=== PATIENT | male | born 1960 | race Caucasian/White ===

== ENCOUNTER 2022-06-05 18:01 | Emergency (ER) | payer OTHER ==
[~2022-06-05 18:01] MED LIST: Cordarone 150 MG/3 ML Injection ONE
[2022-06-05] MEDS ORDERED: NEXTERONE 360 MG/200 ML BAG 360 MG/200 ML PLAST..BAG IV ONE (18:08)
[2022-06-05] MEDS ORDERED: Cordarone 150 MG/3 ML Injection IV ONE (18:10)
[2022-06-05 18:15] LABS: Absolute Neutrophil Ct (ANC) 6.55 x10^3/uL (1.4-6.9); Basophil (Absolute #) 0.16 x10^3/uL (0-0.4); Eosinophil % 1.5 % (0.00-5.0); Eosinophil (Absolute #) 0.25 x10^3/uL (0-0.5); Hematocrit 47.6 % (42-50); Hemoglobin 14.9 g/dL (12.5-18.0); Lymphocyte (Absolute #) 7.35 x10^3/uL (1.0-4.6); Lymphocytes % 45.5 % (24.0-44.0); Mean Corpuscular Hemoglobin 29.7 pg (26-32); Mean Corpuscular Hgb Concent. 31.3 g/dL (32-36); Mean Platelet Volume 9.2 fL (7.5-11.0); Monocyte (Absolute #) 1.14 x10^3/uL (0.0-1.3); Monocytes % 7.1 % (0.0-12.0); Neutrophil % 40.5 % (36.0-66.0); Platelet Count 279 x10^3/uL (150-450); Red Blood Count 5.01 x10^6/uL (4.1-5.6); Red Cell Distribution Width 12.4 % (11.5-14.0); White Blood Count 16.2 x10^3/uL (4.0-10.5)
[2022-06-05] MEDS ORDERED: NEXTERONE 360 MG/200 ML BAG 360 MG/200 ML PLAST..BAG IV SCH (18:15)
[2022-06-05] MEDS ORDERED: HEPARIN 5000 UNITS/0.5 ML (HIGH RISK MED) ONE (18:19)
[2022-06-05] MEDS ORDERED: MORPHINE SULFATE 10 MG/ML IM ONE (18:28)
[2022-06-05] MEDS ORDERED: Zofran 4 MG/2 ML VIAL ONE (18:28)
[2022-06-05] MEDS ORDERED: MORPHINE SULFATE 4 MG INJ ONE (18:29)
[2022-06-05] MEDS ORDERED: Zofran 4 MG/2 ML VIAL IV ONE (18:29)
[2022-06-05] MEDS ORDERED: Ntg 0.2MG/Ml in D5W GLASS*** 250 ML IV ONE (18:29)
[2022-06-05] MEDS ORDERED: Ntg 0.2MG/Ml in D5W GLASS*** 250 ML IV PRN (18:33)
[2022-06-05] MEDS ORDERED: Sodium Chloride 0.9% 1000 ML 1,000 ML ONE (18:34)
[2022-06-05 18:37] LABS: ALBUMIN 4.2 g/dL (3.5-5.0); ALKALINE PHOSPHATASE 80 U/L (38-126); AMYLASE 94 U/L (30-110); ANION GAP 27.5 MEQ/L (5-15); BLOOD UREA NITROGEN 13 mg/dL (9-20); CHLORIDE 100 mmol/L (98-107); Creatinine 1 1.24 mg/dL (0.66-1.25); EST GLOMERULAR FILTRATION RATE > 60.0 ML/MIN; Glucose 260 mg/dL (74-106); LIPASE 136 U/L (23-300); MAGNESIUM 2.7 mg/dL (1.6-2.3); NT PRO BNP 366 pg/mL (0-900); Potassium 3.8 mmol/L (3.5-5.1); SGOT/AST 219 U/L (17-59); SODIUM 137 mmol/L (137-145); Total Protein 7.6 g/dL (6.3-8.2)
[2022-06-05 18:38] LABS: SGPT/ALT 168 U/L (0-50)
[2022-06-05 18:40] LABS: Carbon Dioxide 13 mmol/L (22-30)
[2022-06-05 18:57] LABS: INR 1.16 (0.8-3.0); PROTIME 12.1 SECONDS (9.4-12.5); PTT 92.2 SECONDS (25.1-36.5)
--- NOTE | 2022-06-05 19:00 | ERPHSYRPT ---
- Events Time Seen by Provider: 06/05/22 18:15 Reason for Code Rapid: full arrest Pre-Event Complaints: collapsed CPR initiated prior to MD arrival: Yes Physician Note: Patient was a 62-year-old male who was at his chiropractic office when his of fice staff heard him fall to the floor they found him not breathing and without a pulse. EMS was called they found him in ventricular fibrillation he was defibrillated a total of 4 times prior to arrival. He was not intubated on arrival. Critical Care Time - Critical Care Note Total Time (mins): 60 Comments: .Patient arrived with an irregular heartbeat and it time he was in atrial fib with frequent PVCs 150 mg of amiodarone was administered and he was started on a drip at 1 mg/min. He was also administered a 500 unit heparin bolus and a drip was not started. He was given 4 mg of morphine and started on a nitroglycerin drip at 5 mics per minute at that point he awakened he began talking to us he told us that he had had open heart surgery and he did have a history of atrial fibs. At that point we contacted [facility] in [place] spoke with Dr. Ankit Valenzuela and he excepted the patient in transfer - Progress Progress: improved Progress Note: 06/05/22 18:59 He is still in some pain with chest tightness but he is alert and talking to us. At the time of transfer his vital signs are stable. Patient will be transferred by [facility] ambulance to [facility]. 06/05/22 18:59
[2022-06-05 19:01] VITALS: O2SAT 98
[2022-06-05 19:01] LABS: D-DIMER QUANTITATIVE 24.04 mg/L (0.0-0.50)
[2022-06-05 19:25] VITALS: BP 103/57; PULSE 72
[2022-06-05 19:52] LABS: Appearance CLOUDY (CLEAR); Bilirubin NEGATIVE (NEGATIVE); Dipstick done @ ? MAIN LAB; Glucose 100 mg/dL (NEGATIVE); Ketones NEGATIVE (NEGATIVE); Nitrite NEGATIVE (NEGATIVE); Protein,Urine Dip >=300 (Negative); RBC MODERATE Ery/ul (0-5); Specific Gravity 1.025 (1.005-1.025); Urobilinogen 0.2 mg/dL (0-1)
[2022-06-05 19:56] LABS: Bacteria FEW /HPF (NEGATIVE); Epithelial Cells RARE /HPF (FEW); Mucus SLIGHT /HPF (NEGATIVE); RBC 51-100 /HPF (0-2); Sperm PRESENT /HPF (NEGATIVE); WBC 51-100 /HPF (0-5)
[2022-06-05 19:59] LABS: Urine Cultured Indicated? YES
[2022-06-05 20:07] LABS: Amphetamine,Urine NEGATIVE (NEGATIVE); Barbiturate,Urine NEGATIVE (NEGATIVE); Benzodiazepine,Urine POSITIVE (NEGATIVE); Cocaine,Urine NEGATIVE (NEGATIVE); Methadone,Urine NEGATIVE (NEGATIVE); Opiate,Urine POSITIVE (NEGATIVE); PCP,Urine NEGATIVE (NEGATIVE); THC,Urine POSITIVE (NEGATIVE)
[2022-06-05 20:33] LABS: BAND 2 % (0.0-2.0); Eosinophil 2 % (0.00-3.0); Lymphocytes 45 % (24-44); Macrocytosis 1+; Monocyte 4 % (0.0-12.0); Platelet Estimate NORMAL (NORMAL); Total Cells Counted 100
--- NOTE | 2022-06-06 08:36 | XRAY ---
Indication: Cardiac arrest. Comparison: None Portable apical lordotic chest inflated and clear with incidental tiny right lung calcified granuloma. Heart enlarged with previous cardiac valve replacement surgery. Bony thorax intact with mild osteopenia and degenerative changes. Impression: Cardiomegaly and old granulomatous disease. No acute cardiopulmonary abnormalities.
== END 2022-06-05 19:26 | disposition short-term general hospital (02) ==
LOC: ED 18:01
DX: I46.9 Cardiac arrest, cause unspecified (principal); I49.01 Ventricular fibrillation
CPT/HCPCS: 36000; 36415; 71045; 80053; 80307; 81015; 82150; 83605; 83690; 83735; 83880; 84484; 85025; 85379; 85610; 85730; 87086; 93005; 93041; 96360; 96365; 96368; 96374; 96375; 99285; J0282; J1644; J2270; J2405

== ENCOUNTER 2023-06-20 06:17 | Day surgery (SDC) | payer MEDICAID, OTHER ==
[2023-06-20] MEDS ORDERED: Lactated Ringers 1,000 ML IV ONE ×2 (06:49→06:54)
[2023-06-20 07:11] VITALS: RESP 18
[2023-06-20] MEDS ORDERED: DIPRIVAN 200 MG/20 ML IV ONE ×2 (08:11→08:27)
[2023-06-20] MEDS ORDERED: Versed 2 MG/2 ML Injection ONE (08:11)
--- NOTE | 2023-06-20 08:56 | OP ---
SURGERY DATE/TIME: 06/20/2023 0819 PREOPERATIVE DIAGNOSIS: Rectal bleeding. POSTOPERATIVE DIAGNOSIS: Severe diverticulosis. PROCEDURE: Colonoscopy. SURGEON: Dr. De Luna. ANESTHESIA: Medications given by anesthesia department. HISTORY: The patient is a 63-year-old white male who reports that he has been to a surgeon recently because he had some rectal bleeding. They had thought that he had hemorrhoids but felt that he needed to have endoscopic evaluation seeing how he has never had a screening exam done. The patient was described the risks of the procedure including the risk of perforation, phlebitis, untoward reaction to medication, bleeding and missed lesions. The patient verbalized his understanding and desired to have the procedure performed. DESCRIPTION OF PROCEDURE: The patient was given the medications by the anesthesia department. He had continuous pulse oximetry, ECG monitoring and intermittent blood pressure monitoring during the examination. He was placed in the left lateral decubitus position. A digital rectal examination was performed and revealed internal and external hemorrhoids present. No masses were felt. The prostate was felt to be normal. The flexible Olympus pediatric colonoscope was used to intubate the rectum. A view of the colon was developed sequentially to the cecum. Upon insertion and withdrawal, including a retroflex view in the rectum, was noted a large amount of diverticula but no active bleeding was noted. The scope was removed from the patient who tolerated the procedure well and was sent back to OP recovery in good condition. The prep was noted to be fair to poor with semisolid stool and large amounts of liquid stool present in the colon.
[2023-06-20 09:05] VITALS: TEMP 97.7
[2023-06-20 09:28] VITALS: PULSE 72; O2SAT 99
[2023-06-20 09:29] VITALS: BP 116/70
== END 2023-06-20 09:35 | disposition home or self-care (01) ==
LOC: SDC 06:17
PROVIDERS: ATTEND Family Medicine
DX: K57.30 Diverticulosis of large intestine without perforation or abscess without bleeding (principal); K62.5 Hemorrhage of anus and rectum; K64.4 Residual hemorrhoidal skin tags; K64.8 Other hemorrhoids
CPT/HCPCS: J2250; J2704